=== PATIENT | female | born 1950 | race Caucasian/White ===

== ENCOUNTER 2016-12-27 10:12 | Outpatient (CLI) | payer OTHER ==
--- NOTE | 2016-12-30 11:44 | OP Clinic Progress Note ---
REFERRING PHYSICIAN: Dr. Nat Wiggins REASON FOR VISIT: Kimberly Galvez returns for follow up on her seropositive rheumatoid arthritis involving multiple sites. Her last Rituxan was in September and October. She is feeling well. She is not having any significant joint swelling, warmth, tenderness, morning stiffness or pain. No new deformities. PRESENT MEDICATIONS: 1. Naprosyn. 2. Methotrexate 8 tablets weekly. 3. Folic acid 1 mg daily. REVIEW OF SYSTEMS: No fevers, chills, sweats, chest pain, shortness of breath, cough, or wheezing. No nausea, vomiting, or diarrhea. She is a little stressed because [employer] refuses to pay the September dose of Rituxan; however, they paid the October dose of Rituxan. Denying it because she is supposed to go [facility]." PHYSICAL EXAMINATION: GENERAL: On exam, she looks well. VITAL SIGNS: Height: 5 feet 5 inches. Weight: 160. T: 97, R: 18, heart rate of 75, BP: 136/73. HEENT: Sclerae are anicteric. Conjunctivae are pink. No stomatitis or glossitis. LUNGS: Clear bilaterally with no crackles or wheezing. HEART: Regular rhythm. ABDOMEN: Soft and nontender. VASCULAR: No edema or cyanosis. PERIPHERAL JOINTS: DIPs and PIPs are unremarkable. MCPs with no synovitis. She does have ulnar deviation, more prominent on the right than on the left. The wrists have some decreased extension and flexion but no synovitis. Elbows, shoulders, hips, knees, ankles, and feet are unremarkable. IMPRESSION: 1. Seropositive rheumatoid arthritis of multiple joints, improved. 2. High risk drug. 3. Secondary Sjgren's syndrome, appears stable. No change with dry eyes or dry mouth and no overt extra glandular symptoms. PLAN: We will check her labs in 2 months and I gave her orders. I will see her back in 3 months. Plan on retreatment with her Rituxan in April. Thank you very much. Best regards, cc: Dr. Nat JORGE
== END 2016-12-27 10:14 ==
LOC: RHEU 10:12
PROVIDERS: ATTEND Internal Medicine
DX: M05.79 Rheumatoid arthritis with rheumatoid factor of multiple sites without organ or systems involvement (principal); Z79.899 Other long term (current) drug therapy
CPT/HCPCS: 99214

== ENCOUNTER 2017-03-28 09:34 | Outpatient (CLI) | payer OTHER ==
--- NOTE | 2017-03-31 12:28 | OP Clinic Progress Note ---
Dear Dr. Wiggins: REASON FOR VISIT: I had the pleasure of seeing Kimberly Galvez in follow up for seropositive rheumatoid arthritis. She is doing quite well. Her last Rituxan was in October and she presently has no joint swelling, warmth, tenderness, morning stiffness or pain. No new deformities. No skin rashes or nodules. She remains quite active working in the garden. Working in the garden causes her occasional discomfort for which she takes Naprosyn. PRESENT MEDICATIONS: 1. Rituxan every 6 months. 2. Naprosyn 500 mg twice a day as needed. 3. Methotrexate 8 tablets weekly. 4. Folic acid 1 mg daily. REVIEW OF SYSTEMS: No fevers, chills, sweats, chest pain, shortness of breath, cough, wheezing, nausea, vomiting or diarrhea, numbness or tingling of extremities. PHYSICAL EXAMINATION: GENERAL: She looks well. VITAL SIGNS: T: 97.4, R: 18, heart rate: 70, BP: 126/70. HEENT: Sclerae are anicteric. Conjunctivae are pink. No stomatitis or glossitis. LUNGS: Clear bilaterally with no crackles or wheezing. HEART: Regular rhythm. ABDOMEN: Soft and nontender. VASCULAR: No edema or cyanosis. PERIPHERAL JOINTS: DIPs, PIPs, MCPs, wrists, elbows, shoulders, hips, knees, ankles, and feet show no active synovitis. She does have rheumatoid deformities of ulnar deviation at the MCPs, more on the right than the left. IMPRESSION AND PLAN: 1. Seropositive rheumatoid arthritis of multiple joints, stable. 2. High risk drug. She had labs on March 24. Those were reviewed. CMP and CBC are within normal limits. CRP was 0.37. 3. Secondary Sjgren's, stable, with no complaints today. 4. Need for osteoporosis screening. Her last bone density was over 7 years ago. We will proceed with such at her next visit in 3 months. Thank you very much. Best regards, cc: Dr. Nat JORGE
== END 2017-03-28 13:49 ==
LOC: RHEU 09:34
PROVIDERS: ATTEND Internal Medicine
DX: M05.79 Rheumatoid arthritis with rheumatoid factor of multiple sites without organ or systems involvement (principal); Z79.899 Other long term (current) drug therapy
CPT/HCPCS: 99214

== ENCOUNTER 2017-06-27 09:09 | Outpatient (CLI) | payer MEDICARE, OTHER ==
--- NOTE | 2017-06-27 13:52 | OP Clinic Progress Note ---
REASON FOR VISIT: Kimberly Galvez returns for follow up on seropositive rheumatoid arthritis of multiple sites. Her last Rituxan was in October and she is doing well. She is not having any joint swelling, warmth, tenderness, morning stiffness or pain. No skin rashes or nodules. She remains quite active working in her gardening and presently bought a bicycle and has been biking around [place]. PRESENT MEDICATIONS: 1. Naprosyn 500 mg twice a day as needed. 2. Methotrexate 8 tablets weekly. 3. Folic acid 1 mg daily. 4. Sertraline. REVIEW OF SYSTEMS: No fevers, chills, sweats, chest pain, shortness of breath, cough, wheezing, nausea, vomiting, or diarrhea. No numbness or tingling of her extremities. No rashes. PHYSICAL EXAMINATION: GENERAL: On exam, she looks well. VITAL SIGNS: T: 97.7, R: 18, heart rate of 70, BP: 130/70. HEENT: Sclerae are anicteric. Conjunctivae are pink. No stomatitis or glossitis. No parotid swelling. LUNGS: Clear bilaterally with no crackles or wheezing. HEART: Regular rhythm. ABDOMEN: Soft and nontender. VASCULAR: No edema or cyanosis. PERIPHERAL JOINTS: Rheumatoid deformities but no synovitis. The PIPs, MCPs, and wrists have good retread builder strength. Elbows and shoulders are unremarkable. Good range of motion of the hips, knees, and ankles. DIAGNOSTIC STUDIES: Review of her blood work done on June 12 shows a CMP within normal limits with a AST and ALT of 20 and 16, respectively. Cholesterol was 239. CBC was normal with a hemoglobin of 14.5, white count 6. , and normal platelets. TSH was 2.3. Sedimentation rate was . CRP was 0.36. IMPRESSION: Seropositive rheumatoid arthritis, doing well. PLAN: Continue present regimen. I will see her back in 3 months. She is to call us if she should have any worsening or recurrent symptoms. Thank you very much. Best regards, cc: Dr. Nat JORGE
== END 2017-06-27 09:10 ==
LOC: RHEU 09:09
PROVIDERS: ATTEND Internal Medicine
DX: M05.9 Rheumatoid arthritis with rheumatoid factor, unspecified (principal)
CPT/HCPCS: G0463

== ENCOUNTER 2018-02-27 12:33 | Outpatient (CLI) | payer MEDICARE, OTHER ==
--- NOTE | 2018-03-02 11:26 | OP Clinic Progress Note ---
HISTORY OF PRESENT ILLNESS: Kimberly Galvez returns for follow up of seropositive rheumatoid arthritis of multiple sites. She has had rheumatoid arthritis for 24 years now having failed all disease-modifying agents and previous biologics. She is doing great. She received Rituxan in October 2016 and she is not having any joint swelling, warmth, tenderness, or morning stiffness pain. No new deformities. No rashes or nodules. She remains independent and active. 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 Her left arm almost reaches the same height as her right arm. PRESENT MEDICATIONS: 1. Naprosyn 500 mg twice a day as needed. 2. Methotrexate 8 tablets weekly. 3. Folic acid 1 mg daily. 4. Sertraline. REVIEW OF SYSTEMS: As per the HPI. PHYSICAL EXAMINATION: VITAL SIGNS: Height: 5 feet 6 inches. Weight: 152 pounds. T: 97.4, R: 20, heart rate 74, BP: 115/74. HEENT: Sclerae are anicteric. Conjunctivae are pink. No stomatitis or glossitis. LUNGS: Clear bilaterally with no crackles or wheezing. HEART: Regular rate and rhythm. ABDOMEN: Soft and nontender. VASCULAR: Shows no edema or cyanosis. PERIPHERAL JOINTS: She has rheumatoid deformities and ulnar deviation, as well as inferior subluxation at the MCP joints. 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 She has no synovitis. Elbows are unremarkable. She has full abduction of both shoulders except for on the left, maybe 5 degrees less. The knees, ankles, and feet are unremarkable. No tenderness. No instability. No synovitis. LABORATORY: She had labs done in October which were reviewed. AST and ALT at 21 and 23, respectively. CBC within normal limits. Sedimentation rate was 9. IMPRESSION: Seropositive rheumatoid arthritis, doing well. PLAN: 1. Continue present regimen. If she should flare before I see her in June, she will call us and I will make arrangements for Rituxan. 2. She is seeing Dr. Nat Wiggins next month. I would like at that time a repeat CBC, CMP, and sedimentation rate. Thank you very much. Best regards, cc: Dr. Nat JORGE
== END 2018-02-27 14:11 ==
LOC: RHEU 12:33
PROVIDERS: ATTEND Internal Medicine
DX: M05.9 Rheumatoid arthritis with rheumatoid factor, unspecified (principal)
CPT/HCPCS: 99214; G0463

== ENCOUNTER 2018-07-03 11:00 | Outpatient (CLI) | payer MEDICARE, OTHER ==
--- NOTE | 2018-07-06 07:36 | OP Clinic Progress Note ---
REASON FOR VISIT: Kimberly Galvez returns for follow up of seropositive rheumatoid arthritis of multiple sites. She has had rheumatoid arthritis for 25 years now and has failed multiple disease-modifying agents and biologics. Finally, she has done well on Rituxan and she received 1 dose in October 2016. Presently, she is not having any significant joint swelling, warmth, tenderness, morning stiffness or pain. She has been doing Pilates and has had some issues with shoulder range of motion but no significant pain. PRESENT MEDICATIONS: 1. Naprosyn 500 mg twice a day as needed. 2. Methotrexate 8 tablets weekly. 3. Folic acid 1 mg daily. 4. Sertraline. REVIEW OF SYSTEMS: No fevers, chills, sweats, chest pain, shortness of breath, cough, wheezing, nausea, vomiting, or diarrhea. PHYSICAL EXAMINATION: VITAL SIGNS: Height: 5 feet 6 inches. Weight: 158 pounds. T: 97.5, R: 20, heart rate 60, BP: 126/76. HEENT: Sclerae are anicteric. Conjunctivae are pink. No stomatitis or glossitis. LUNGS: Clear with no crackles or wheezing. HEART: Regular rate and rhythm. ABDOMEN: Soft and nontender. VASCULAR: No edema or cyanosis. PERIPHERAL JOINTS: Show ulnar deviation at the MCPs, as well as inferior subluxation. Decreased flexion and extension at the wrists. Surg Nurse strength is 5/5. Elbows, no synovitis and no deformities. She has improving abduction of her shoulders. Knees, ankles, and feet are unremarkable. No tenderness. No synovitis. LABORATORY: She had labs done in [place] with Dr. Wiggins. IMPRESSION: 1. Seropositive rheumatoid arthritis, doing well. 2. High risk drug. PLAN : 1. Continue present regimen. 2. She is to call me if her symptoms should worsen and I will set her up for Rituxan if needed. 3. We will check CBC, CMP, and sedimentation rate. Thank you very much. cc: Dr. Nat JORGE
== END 2018-07-03 11:02 ==
LOC: RHEU 11:00
PROVIDERS: ATTEND Internal Medicine
DX: M05.9 Rheumatoid arthritis with rheumatoid factor, unspecified (principal); Z79.899 Other long term (current) drug therapy
CPT/HCPCS: 99214; G0463